=== PATIENT | female | born 1995 | race Hispanic/Latino ===

== ENCOUNTER 2018-06-04 11:29 | Emergency (ER) | payer SELFPAY ==
[2018-06-04 12:33] LABS: Absolute Lymphocytes (CBC) 1.7 K/uL (0.7-4.9); Absolute Monocytes 0.5 K/uL (0.1-1.3); Basophils % 0.4 % (0-1.3); Eosinophils % 1.3 % (0-4.4); Hematocrit 35.5 % (36.0-45.0); Lymphocytes % 32.3 % (15.3-44.8); Monocytes % 8.9 % (3.3-12.3); RBC Red Blood Cell Count 4.14 M/uL (3.86-4.86)
[2018-06-04 12:52] LABS: BUN Blood Urea Nitrogen 8 mg/dL (7-18); Bicarbonate 26 mmol/L (21-32); Glucose Level 88 mg/dL (74-106); Potassium 3.5 mmol/L (3.5-5.1); Sodium Level 139 mmol/L (136-145)
[2018-06-04 12:56] LABS: Urine Blood TRACE (NEG); Urine Glucose NEGATIVE (NEG); Urine Protein NEGATIVE (NEG); Urine Specific Gravity 1.015 (1.005-1.030)
[2018-06-04 13:17] LABS: Urine Amorphous Sediment 1+ /HPF (NONE SEEN); Urine Bacteria <20 /HPF (<20); Urine Culture Reflex Order NOT NEEDED; Urine RBC NONE SEEN /HPF (NONE SEEN)
--- NOTE | 2018-06-04 13:18 | RAD REPORT ---
EXAM DESCRIPTION: US - Transvaginal OB - 06/04/2018 1:05 pm CLINICAL HISTORY: Abdominal pain, vaginal bleeding COMPARISON: None. TECHNIQUE: Endovaginal sonography performed. FINDINGS: Normal shaped intrauterine gestational sac is identified. pole is identified with he art rate of 138 BPM. Yolk sac is identifiable. Regina-rump length corresponds to a 6 week 1 day age. N o hematoma or mass within the endometrial cavity. IUD is in place in the cervical canal. Right ovary and right adnexa show no suspicious findings. Left ovary contains a 12 millimeter cyst. P rominent vessels are present in the bilateral adnexa. No free fluid or blood in the cul-de-sac. Uterus is 6.7 x 4.7 x 6.9 cm. IMPRESSION: Single 6 week 1 day IUP with JOSE RAMON of 01/27/2019. Heart rate is 138 BPM. IUD is in place in the cervical canal. No hematoma or focal finding within the endometrial cavity. No suspicious ovarian or adnexal finding.
--- NOTE | 2018-06-04 13:42 | ER ---
Nurse's Notes [facility] Name: Elaine Moon Age: 23 yrs Sex: Female : 1995 Arrival Date: 06/04/2018 Time: 11:32 Bed 5 Private MD: Diagnosis: Threatened Presentation: 06/04 11:43 Presenting complaint: Patient states: Tripped over shoes this morning while getting out ss of bed, falling onto R side. PT c/o lower abd discomfort and is concerned because she believes she is despite having an IUD in place. Pt reports that she recently took a test which was positive. Also reports noticing light pink spotting on toilet paper after using the restroom. Transition of care: patient was not received from another setting of care. Onset of symptoms was June 04, 2018. Risk Assessment: Do you want to hurt yourself or someone else? Patient reports no desire to harm self or others. Initial Sepsis Screen: Does the patient meet any 2 criteria? No. Patient's initial sepsis screen is negative. Does the patient have a suspected source of infection? No. Patient's initial sepsis screen is negative. Care prior to arrival: None. 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 - Social history:: Smoking status: Patient/guardian denies using tobacco. - Ebola Screening: : Patient denies exposure to infectious person Patient denies travel to an Ebola-affected area in the 21 days before illness onset. Screenin:08 Abuse screen: Denies threats or abuse. Denies injuries from another. Nutritional ph screening: No deficits noted. Tuberculosis screening: No symptoms or risk factors identified. Fall Risk None identified. Assessment: 12:00 General: Appears in no apparent distress. comfortable, slender, well groomed, Behavior ph is calm, cooperative, appropriate for age. Pain: Complains of pain in suprapubic area, right lower quadrant and left lower quadrant. Neuro: Level of Consciousness is awake, alert, obeys commands, Oriented to person, place, time, situation. Cardiovascular: Capillary refill < 3 seconds in bilateral fingers Patient's skin is warm and dry. Respiratory: Airway is patent Respiratory effort is even, unlabored, Respiratory pattern is regular, symmetrical. GI: Reports lower abdominal pain, Patient currently denies nausea, vomiting. : Reports pain in suprapubic area vaginal bleeding that is spotty. Derm: Skin is intact, is healthy with good turgor, Skin is pink, warm \T\ dry. Musculoskeletal: Circulation, motion, and sensation intact. Range of motion: intact in all extremities. 13:00 Reassessment: Patient appears in no apparent distress at this time. Patient and/or ph family updated on plan of care and expected duration. Pain level reassessed. Patient is alert, oriented x 3, equal unlabored respirations, skin warm/dry/pink. 14:25 Reassessment: Patient appears in no apparent distress at this time. Patient and/or ss family updated on plan of care and expected duration. Pain level reassessed. Patient is alert, oriented x 3, equal unlabored respirations, skin warm/dry/pink. Patient denies pain at this time. Vital Signs: 12:07 BP 98 / 55; Pulse 66; Resp 18; Temp 97.9; Pulse Ox 100% on R/A; ph 12:28 BP 90 / 59; Pulse 59; Resp 16; Pulse Ox 100% ; sv 13:28 BP 100 / 59; Pulse 69; Resp 16; Pulse Ox 100% ; sv ED Course: 11:32 Patient arrived in ED. mr 11:33 Ken Manzo, IDALIA is PHCP. pm1 11:34 Hubert Germain MD is Attending Physician. pm1 11:36 Katie Bailey, MAKENZIE is Primary Nurse. ph 11:45 Triage completed. ss 11:45 Arm band placed on right wrist. ss 12:08 Patient has correct armband on for positive identification. Bed in low position. Call light in reach. Side rails up X 1. Pulse ox on. NIBP on. Warm blanket given. 12:09 Initial lab(s) drawn, by ED staff, sent to lab. Inserted saline lock: 20 gauge in right ph antecubital area, using aseptic technique. Blood collected. 12:12 Radiology exam delayed due to lab results not completed at this time. (HCG). aa4 12:56 US Transvaginal Ob In Process Unspecified. EDMS 13:41 Elayne Cruz MD is Referral Physician. pm1 14:25 No provider procedures requiring assistance completed. Patient did not have IV access ss during this emergency room visit. Administered Medications: No medications were administered Outcome: 13:42 Discharge ordered by . pm1 14:25 Discharged to home ambulatory. ss 14:25 Condition: good 14:25 Discharge instructions given to patient, significant other, Instructed on discharge instructions, follow up and referral plans. medication usage, Demonstrated understanding of instructions, follow-up care, medications, Prescriptions given X 1. 14:25 Patient left the ED. ss Signatures: Dispatcher [employer] EDMS Winnie Valerio, RN RN Macdonald, Shelley Craig Amanda aa4 Sonya Chino RN RN Katie Bailey RN RN Ken Manzo, IDALIA MORTAR MIXER OPERATOR pm1 Corrections: (The following items were deleted from the chart) 16:00 14:25 Respiratory: Respiratory effort is even, labored, ss ph
--- NOTE | 2018-06-04 13:42 | EDPHYS ---
Physician Documentation [facility] Name: Elaine Moon Age: 23 yrs Sex: Female : 1995 Arrival Date: 06/04/2018 Time: 11:32 Bed 5 Private MD: ED Physician Hubert Germain HPI: 06/04 12:05 This 23 yrs old Female presents to ER via Ambulatory with complaints of Fall pm1 Injury, . 12:05 The patient presents to the emergency department with vaginal bleeding, described as pm1 spotting. course: Risk/complications: Has IUD present. The patient has not recently seen a physician. Patient was getting out of bed and tripped on her shoes and fell on her right side. Patient reports lower abdominal pain with fall. Has vaginal bleeding that is spotting. No headache, head injury, LOC, neck pain. Patient said she realized that her menses was late, LMP April 25, 2018, and took a home test at home today that was positive. Patient is concerned because she has a IUD . 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 - Social history:: Smoking status: Patient/guardian denies using tobacco. - Ebola Screening: : Patient denies exposure to infectious person Patient denies travel to an Ebola-affected area in the 21 days before illness onset. ROS: 12:05 Constitutional: Negative for fever, chills, and weight loss, Eyes: Negative for injury, pm1 pain, redness, and discharge, ENT: Negative for injury, pain, and discharge, Neck: Negative for injury, pain, and swelling, Cardiovascular: Negative for chest pain, palpitations, and edema, Respiratory: Negative for shortness of breath, cough, wheezing, and pleuritic chest pain. 12:05 Back: Negative for injury and pain, MS/Extremity: Negative for injury and deformity, Skin: Negative for injury, rash, and discoloration, Neuro: Negative for headache, weakness, numbness, tingling, and seizure. 12:05 Abdomen/GI: Positive for abdominal pain, of the right lower quadrant and left lower quadrant, Negative for nausea, vomiting, and diarrhea. 12:05 : Positive for vaginal bleeding, Negative for vaginal discharge, vaginal itching. Exam: 12:05 Constitutional: This is a well developed, well nourished patient who is awake, alert, pm1 and in no acute distress. Head/Face: Normocephalic, atraumatic. Eyes: Pupils equal round and reactive to light, extra-ocular motions intact. Lids and lashes normal. Conjunctiva and sclera are non-icteric and not injected. Cornea within normal limits. Periorbital areas with no swelling, redness, or edema. ENT: Nares patent. No nasal discharge, no septal abnormalities noted. Tympanic membranes are normal and external auditory canals are clear. Oropharynx with no redness, swelling, or masses, exudates, or evidence of obstruction, uvula midline. Mucous membranes moist. Neck: Trachea midline, no thyromegaly or masses palpated, and no cervical lymphadenopathy. Supple, full range of motion without nuchal rigidity, or vertebral point tenderness. No Meningismus. Chest/axilla: Normal chest wall appearance and motion. Nontender with no deformity. No lesions are appreciated. Cardiovascular: Regular rate and rhythm with a normal S1 and S2. No gallops, murmurs, or rubs. Normal PMI, no JVD. No pulse deficits. Respiratory: Lungs have equal breath sounds bilaterally, clear to auscultation and percussion. No rales, rhonchi or wheezes noted. No increased work of breathing, no retractions or nasal flaring. Abdomen/GI: Soft, non-tender, with normal bowel sounds. No distension or tympany. No guarding or rebound. No evidence of tenderness throughout. Back: No spinal tenderness. No costovertebral tenderness. Full range of motion. Skin: Warm, dry with normal turgor. Normal color with no rashes, no lesions, and no evidence of cellulitis. MS/ Extremity: Pulses equal, no cyanosis. Neurovascular intact. Full, normal range of motion. 12:05 Neuro: Orientation: is normal, Motor: is normal, moves all fours, Gait: is steady, at a normal pace, without difficulty. Vital Signs: 12:07 BP 98 / 55; Pulse 66; Resp 18; Temp 97.9; Pulse Ox 100% on R/A; ph 12:28 BP 90 / 59; Pulse 59; Resp 16; Pulse Ox 100% ; sv 13:28 BP 100 / 59; Pulse 69; Resp 16; Pulse Ox 100% ; sv MDM: 11:36 Patient medically screened. pm1 14:09 Data reviewed: vital signs. Data interpreted: Pulse oximetry: on room air is 100 %. pm1 Interpretation: normal. Counseling: I had a detailed discussion with the patient and/or guardian regarding: the historical points, exam findings, and any diagnostic results supporting the discharge/admit diagnosis, lab results, radiology results, the need for outpatient follow up, for definitive care, an OB/Gyne specialist, to return to the emergency department if symptoms worsen or persist or if there are any questions or concerns that arise at home. 06/04 11:44 Order name: Basic Metabolic Panel; Complete Time: 13:01 pm06/04 11:44 Order name: CBC with Diff; Complete Time: 12:46 pm06/04 11:59 Order name: Urine Microscopic Only; Complete Time: 13:20 pm06/04 11:59 Order name: Quantitative Hcg; Complete Time: 13:20 pm06/04 11:59 Order name: Abo/rh Typing; Complete Time: 13:40 06/04 12:13 Order name: Urine Dipstick--Ancillary (enter results); Complete Time: 13:01 bd 06/04 11:44 Order name: Urine Test (obtain specimen); Complete Time: 12:09 06/04 11:44 Order name: IV Saline Lock; Complete Time: 12:06/04 11:44 Order name: Labs collected and sent; Complete Time: 12:09 pm06/04 11:44 Order name: NPO; Complete Time: 12:09 06/04 11:44 Order name: Urine Dipstick-Ancillary (obtain specimen); Complete Time: 12:09 06/04 12:00 Order name: US Transvaginal Ob; Complete Time: 13:20 pm06/04 12:13 Order name: Urine --Ancillary (enter results); Complete Time: 13:01 bd 06/04 14:02 Order name: ABO/RH no charge; Complete Time: 14:09 EDMS Administered Medications: No medications were administered Disposition: 15:24 Co-signature as Attending Physician, Hubert Germain MD I agree with the assessment and [facility] plan of care. Disposition: 06/04/18 13:42 Discharged to Home. Impression: Threatened . - Condition is Stable. - Discharge Instructions: Threatened Miscarriage, Pelvic Rest. - Prescriptions for Vitamin 27- 0.8 mg Oral Tablet - take 1 tablet by ORAL route once daily; 60 tablet. - Medication Reconciliation Form, Thank You Letter, Antibiotic Education, Prescription Opioid Use form. - Follow up: Elayne Cruz MD; When: 2 - 3 days; Reason: Recheck today's complaints, Continuance of care, Re-evaluation by your physician. - Problem is new. - Symptoms have improved. Signatures: Dispatcher [employer] EDFL Hubert Germain MD MD cha Smirch, Shelby, RN RN ss Ken Manzo, ROGUER ROGUER pm1 Corrections: (The following items were deleted from the chart) 14:25 13:42 06/04/2018 13:42 Discharged to Home. Impression: Threatened . Condition ss is Stable. Forms are Medication Reconciliation Form, Thank You Letter, Antibiotic Education, Prescription Opioid Use. Follow up: Elayne Cruz; When: 2 - 3 days; Reason: Recheck today's complaints, Continuance of care, Re-evaluation by your physician. Problem is new. Symptoms have improved. pm1
== END 2018-06-04 14:25 | disposition home or self-care (01) ==
LOC: ER 11:29
DX: O20.0 Threatened abortion (principal); Z3A.00 Weeks of gestation of pregnancy not specified
CPT/HCPCS: 36415; 76817; 80048; 81003; 81015; 81025; 84702; 85025; 86900; 86901; 99284